=== PATIENT | male | born 1950 | race Caucasian/White ===

== ENCOUNTER 2022-09-23 17:18 | Inpatient (IN) | payer MEDICARE, OTHER, SELFPAY ==
[2022-09-23] MEDS ORDERED: niCARdipine 25 MG/10 ML SDV ONE ×2 (17:35→17:46)
[2022-09-23] MEDS ORDERED: Etomidate 20 MG/10 ML VIAL ONE (17:37)
[2022-09-23] MEDS ORDERED: Rocuronium Bromide 10 MG/ML (10ML VIAL) ONE (17:37)
[2022-09-23 17:43] LABS: #Basophils 0.1 thou/uL (0.0-0.2); #Lymphocytes 1.5 thou/uL (1.20-3.40); #Monocytes 0.5 thou/uL (0.11-0.59); #Neutrophils 8.5 thou/uL (1.40-6.50); %Basophils 0.5 % (0.0-1.0); %Eosinophils 0.4 % (0.0-10.0); %Lymphocytes 14.1 % (21.0-51.0); %Monocytes 4.6 % (0.0-10.0); %Neutrophils 80.5 % (42.0-75.0); Mean Corpuscular HGB CONC 33.9 g/dL (32.0-36.0); Mean Corpuscular Hemoglobin 31.8 pg (27.0-31.0); Mean Corpuscular Volume 93.9 fl (78.0-98.0); Mean Platelet Volume 7.6 fL (7.4-10.4); Platelet Count 231 10x3/uL (130-400); RBC Distribution Width 12.4 % (11.5-14.5); Red Blood Cell (RBC) Count 4.39 mill/uL (4.70-6.10); White Blood Cell (WBC) Count 10.5 10x3/uL (4.8-10.8)
[2022-09-23] MEDS ORDERED: Fentanyl CADD 100 ML IV SCH ×2 (17:45→18:45)
[2022-09-23] MEDS ORDERED: Midazolam HCl 2 mg/2 ml Vial ONE (17:46)
[2022-09-23 18:02] LABS: ALT (SGPT) 44 U/L (8-55); AST (SGOT) 44 U/L (5-34); Alkaline Phosphatase 78 U/L (40-110); Anion Gap 14 mmol/L (10-20); BUN (Urea Nitrogen) 21 mg/dL (8.4-25.7); Bilirubin, Total 0.4 mg/dL (0.2-1.2); Calc. Creatinine Clearance 0 mL/min (70-130); Calcium 9.5 mg/dL (7.8-10.44); Carbon Dioxide 27 mmol/L (23-31); Chloride 100 mmol/L (98-107); Estimated GFR 73; Globulin 3.2 g/dL (2.4-3.5); Potassium 4.3 mmol/L (3.5-5.1); Protein, Total 7.2 g/dL (5.8-8.1); Sodium 137 mmol/L (136-145)
[2022-09-23 18:05] LABS: Actual Bicarbonate (HCO3a) 23.2 mEq/L (22-28); Analyzer IN Cardio ER; Base Excess (BEa) 2.3 mEq/L (-2.0 to +3.0); Calcium, Ionized (arterial) 1.09 mmol/L (1.12-1.30); Hematocrit-ABG 39 % (42.0-52.0); Hemoglobin (Hb) 13.1 g/dL (14.0-18.0); O2 Tension (PaO2), arterial 576.2 mmHg (> 80.0); Potassium - ABG Lab 3.55 mmol/L (3.70-5.30); pH, Arterial 7.568 (7.35-7.45)
[2022-09-23 18:08] LABS: Puncture Site RRA
[2022-09-23 18:10] LABS: Bacteria/HPF None Seen HPF (None Seen); Bilirubin Negative (Negative); Blood, Urine 2+ (Negative); Clarity Clear (Clear); Glucose, Urine (Dipstick) Greater than 1000 mg/dL (Negative); Ketone, Urine Negative (Negative); Leukocyte Negative Leu/uL (Negative); Nitrite Negative (Negative); Protein, Urine (Dipstick) 70 mg/dL (Neg-Trace); RBC/HPF 21-50 HPF (0-3); Specific Gravity, Urine 1.027 (1.002-1.036); Squamous Epithelial None Seen HPF (0-3); Urobilinogen Normal mg/dL (Less than 2); WBC/HPF 0-3 HPF (0-3); pH, Urine 6.5 (5.0-9.0)
[2022-09-23 18:11] LABS: Transitional Epithelial 0-3 HPF (None Seen)
[2022-09-23] MEDS ORDERED: Milk Of Magnesia 30 ML UDCUP PO PRN (18:20)
[2022-09-23] MEDS ORDERED: NOREPINEPHRINE 8 MG/250 ML-D5W 250 ML IVPB PRN (18:20)
[2022-09-23] MEDS ORDERED: Acetaminophen 650 MG Suppository PR PRN (18:20)
[2022-09-23] MEDS ORDERED: Electrolyte Replacement Protocol 1 EACH IVPB PRN (18:20)
[2022-09-23] MEDS ORDERED: Mannitol 12.5 GM/50 ML ONE ×2 (18:21→18:32)
[2022-09-23] MEDS ORDERED: manNITOL 20% 0 ML ONE (18:21)
[2022-09-23 18:24] LABS: Glucose 440 mg/dL (80-115)
[2022-09-23] MEDS ORDERED: Mannitol 12.5 GM/50 ML IV PRN ×2 (18:27→18:40)
[2022-09-23] MEDS ORDERED: niCARdipine 25 MG in Sodium Chloride 0.9% 250 ML 250 ML IVPB PRN (18:27)
[2022-09-23] MEDS ORDERED: Dextrose 5%-Lactated Ringers 1,000 ML IV SCH (18:30)
[2022-09-23] MEDS ORDERED: Ventilator Sedation Protocol 1 EACH FS SCH (18:30)
[2022-09-23] MEDS ORDERED: Fentanyl BOLUS 250 ML IVPB PRN (18:45)
[2022-09-23] MEDS ORDERED: DISCONTINUE PREVIOUS NARCOTIC PAIN MEDICATIONS AND BENZODIAZEPINES FS SCH (18:45)
[2022-09-23] MEDS ORDERED: Propofol 1,000 MG/100 ML VIAL IV PRN (18:45)
[2022-09-23] MEDS ORDERED: Propofol BOLUS 1,000 MG/100 ML VIAL IV PRN (18:45)
[2022-09-23] MEDS ORDERED: Morphine 2 MG/ML VIAL SLOW IVP PRN (18:45)
[2022-09-23] MEDS ORDERED: Lorazepam 2 MG/ML VIAL SLOW IVP PRN (18:45)
[2022-09-23 19:07] LABS: INR-International Normal Ratio 0.8; PTT 25.8 sec (22.9-36.1); Prothrombin Time 11.9 sec (12.0-14.7)
[2022-09-23] MEDS ORDERED: Dextrose 5% in Water 1,000 ML IV PRN (19:54)
[2022-09-23] MEDS ORDERED: Dextrose 50% Abboject 50 ML SYRINGE SLOW IVP PRN (19:54)
[2022-09-23] MEDS ORDERED: HumaLOG 300 UNITS/3 ML VIAL SC PRN (19:54)
[2022-09-23 21:20] LABS: Hemoglobin A1c 13.2 % (4.0-6.0)
[2022-09-23] MEDS: Sodium Chloride 0.45% 1,000 ML IV SCH (22:00)
[2022-09-23] MEDS: Famotidine/PF 20 mg/2ml Vial SLOW IVP SCH (22:23)
[2022-09-23] MEDS ORDERED: NOREPINEPHRINE 8 MG/250 ML-D5W 250 ML ONE (22:35)
[2022-09-23] MEDS ORDERED: NOREPINEPHRINE 8 MG/250 ML-D5W 250 ML IVPB SCH (22:45)
[2022-09-23 22:58] LABS: Actual Bicarbonate (HCO3a) 25.1 mEq/L (22-28); Base Excess (BEa) 0.5 mEq/L (-2.0 to +3.0); CO2 Tension 40.4 mmHg (35.0-45.0); Calcium, Ionized (arterial) 1.12 mmol/L (1.12-1.30); Hematocrit-ABG 36 % (42.0-52.0); Hemoglobin (Hb) 12.4 g/dL (14.0-18.0); O2 Tension (PaO2), arterial 216.6 mmHg (> 80.0); Potassium - ABG Lab 3.84 mmol/L (3.70-5.30); pH, Arterial 7.411 (7.35-7.45)
[2022-09-23 23:01] LABS: Puncture Site RRA
[2022-09-24 00:09] LABS: Amphetamine Not Detected (NotDetected); Barbiturates Screen Not Detected (NotDetected); Benzodiazepine Screen Not Detected (NotDetected); Cocaine Metabolite Screen Not Detected (NotDetected); Methadone Not Detected (NotDetected); Methamphetamine Not Detected (NotDetected); Opiate Screen Not Detected (NotDetected); Oxycodone Screen Not Detected (NotDetected); Phencyclidine (PCP) Not Detected (NotDetected); THC/Cannabinoid Screen Not Detected (NotDetected); Tricyclic Screen Not Detected (NotDetected)
[2022-09-24] MEDS ORDERED: Sodium Chloride 0.45% 500 ML IV SCH (02:00)
[2022-09-24] MEDS: Sodium Chloride 0.45% 1,000 ML IV SCH (03:54)
[2022-09-24 04:39] LABS: #Lymphocytes 1.7 thou/uL (1.20-3.40); #Monocytes 1.6 thou/uL (0.11-0.59); #Neutrophils 14.6 thou/uL (1.40-6.50); %Eosinophils 0.3 % (0.0-10.0); %Lymphocytes 9.6 % (21.0-51.0); %Monocytes 8.7 % (0.0-10.0); %Neutrophils 81.5 % (42.0-75.0); Hemoglobin 12.8 g/dL (14.0-18.0); Mean Corpuscular HGB CONC 31.7 g/dL (32.0-36.0); Mean Corpuscular Volume 94.8 fl (78.0-98.0); Mean Platelet Volume 7.3 fL (7.4-10.4); Platelet Count 235 10x3/uL (130-400); RBC Distribution Width 12.7 % (11.5-14.5); Red Blood Cell (RBC) Count 4.25 mill/uL (4.70-6.10); White Blood Cell (WBC) Count 17.9 10x3/uL (4.8-10.8)
[2022-09-24 05:00] LABS: AST (SGOT) 32 U/L (5-34); Anion Gap 17 mmol/L (10-20); Bilirubin, Total 0.6 mg/dL (0.2-1.2); Calcium 8.7 mg/dL (7.8-10.44); Carbon Dioxide 19 mmol/L (23-31); Chloride 106 mmol/L (98-107); Cholesterol 213 mg/dl (< 200 Desired); Potassium 4.5 mmol/L (3.5-5.1); Protein, Total 6.4 g/dL (5.8-8.1); Sodium 137 mmol/L (136-145); Triglycerides 75 mg/dL (Less than 150)
[2022-09-24 05:10] LABS: Albumin 3.4 g/dL (3.4-4.8)
[2022-09-24 05:13] LABS: Glucose 255 mg/dL (80-115)
[2022-09-24 05:16] LABS: Alkaline Phosphatase 77 U/L (40-110); Calc. Creatinine Clearance 49 mL/min (70-130); Estimated GFR 94
[2022-09-24 05:17] LABS: BUN (Urea Nitrogen) 20 mg/dL (8.4-25.7)
[2022-09-24 05:18] LABS: Cardiac Risk 3.3 (Less than 4.5); HDL Cholesterol 64 mg/dL (>60 Neg Risk); LDL Cholesterol, Calculated 134 mg/dL
[2022-09-24 05:19] LABS: ALT (SGPT) 35 U/L (8-55)
[2022-09-24] MEDS: Pantoprazole 40 MG VIAL IVP SCH (08:45)
[2022-09-24] MEDS: Mannitol 12.5 GM/50 ML SLOW IVP SCH ×2 (08:46→22:00)
[2022-09-24] MEDS: Famotidine/PF 20 mg/2ml Vial SLOW IVP SCH ×2 (09:17→21:43)
[2022-09-24] MEDS ORDERED: Iopamidol-370 76% 500 ML MDV (1 ML CHARGE) ONE (10:42)
[2022-09-24] MEDS: HumaLOG 300 UNITS/3 ML VIAL SC PRN (13:20)
[2022-09-24] MEDS ORDERED: Sodium Chloride 0.9% 500 ML IV SCH (13:30)
[2022-09-24 16:21] VITALS: BMI 15.0
[2022-09-24 18:41] LABS: Sodium 139 mmol/L (136-145)
[2022-09-25 04:03] LABS: ALT (SGPT) 19 U/L (8-55); AST (SGOT) 16 U/L (5-34); Alkaline Phosphatase 64 U/L (40-110); Anion Gap 15 mmol/L (10-20); BUN (Urea Nitrogen) 19 mg/dL (8.4-25.7); Bilirubin, Total 0.6 mg/dL (0.2-1.2); Calc. Creatinine Clearance 50 mL/min (70-130); Calcium 8.3 mg/dL (7.8-10.44); Carbon Dioxide 21 mmol/L (23-31); Chloride 105 mmol/L (98-107); Estimated GFR 94; Globulin 2.6 g/dL (2.4-3.5); Glucose 148 mg/dL (80-115); Potassium 3.8 mmol/L (3.5-5.1); Protein, Total 5.6 g/dL (5.8-8.1); Sodium 137 mmol/L (136-145)
[2022-09-25 04:04] LABS: Mean Corpuscular HGB CONC 35.1 g/dL (32.0-36.0); Mean Corpuscular Hemoglobin 33.8 pg (27.0-31.0); Mean Corpuscular Volume 96.2 fl (78.0-98.0); Mean Platelet Volume 7.5 fL (7.4-10.4); Platelet Count 208 10x3/uL (130-400); RBC Distribution Width 12.9 % (11.5-14.5); Red Blood Cell (RBC) Count 3.85 mill/uL (4.70-6.10); White Blood Cell (WBC) Count 20.2 10x3/uL (4.8-10.8)
[2022-09-25 04:25] LABS: Band 41 % (5-11); Lymphocytes 4 % (21-51); MDiff Complete? YES; Metamyelocyte 1 % (0-0); Monocytes 3 % (0-10); Neutrophil 51 % (42-75); Reflex for Review?? YES
[2022-09-25] MEDS: Pantoprazole 40 MG VIAL IVP SCH (08:39)
[2022-09-25] MEDS: Famotidine/PF 20 mg/2ml Vial SLOW IVP SCH ×2 (08:40→20:50)
[2022-09-25] MEDS: Mannitol 12.5 GM/50 ML SLOW IVP SCH ×2 (08:56→20:50)
[2022-09-25] MEDS: HumaLOG 300 UNITS/3 ML VIAL SC PRN ×2 (12:56→21:15)
[2022-09-25 18:11] LABS: Sodium 138 mmol/L (136-145)
[2022-09-26 04:13] LABS: Hemoglobin 10.3 g/dL (14.0-18.0); Mean Corpuscular Volume 96.9 fl (78.0-98.0); Mean Platelet Volume 8.3 fL (7.4-10.4); Platelet Count 159 10x3/uL (130-400); Red Blood Cell (RBC) Count 3.22 mill/uL (4.70-6.10); White Blood Cell (WBC) Count 16.7 10x3/uL (4.8-10.8)
[2022-09-26 04:35] LABS: ALT (SGPT) 17 U/L (8-55); AST (SGOT) 13 U/L (5-34); Albumin 2.7 g/dL (3.4-4.8); Alkaline Phosphatase 73 U/L (40-110); Anion Gap 12 mmol/L (10-20); BUN (Urea Nitrogen) 32 mg/dL (8.4-25.7); Bilirubin, Total 0.5 mg/dL (0.2-1.2); Calc. Creatinine Clearance 51 mL/min (70-130); Calcium 8.4 mg/dL (7.8-10.44); Carbon Dioxide 22 mmol/L (23-31); Chloride 106 mmol/L (98-107); Estimated GFR 94; Globulin 2.6 g/dL (2.4-3.5); Glucose 185 mg/dL (80-115); Protein, Total 5.3 g/dL (5.8-8.1); Sodium 136 mmol/L (136-145)
[2022-09-26] MEDS: HumaLOG 300 UNITS/3 ML VIAL SC PRN ×3 (06:33→15:43)
[2022-09-26 06:38] LABS: Band 8 % (5-11); Lymphocytes 7 % (21-51); MDiff Complete? YES; Monocytes 2 % (0-10); Neutrophil 83 % (42-75); Platelet Morphology Comment Appears Adequate; RBC Morphology Within Normal Limits; Vacuoles SLIGHT
[2022-09-26] MEDS: Famotidine/PF 20 mg/2ml Vial SLOW IVP SCH (09:09)
[2022-09-26] MEDS: Mannitol 12.5 GM/50 ML SLOW IVP SCH ×2 (09:28→22:52)
[2022-09-26] MEDS: Ampicillin/Sulbactam 1.5 GM in Sodium Chloride 0.9% 100 ML IVPB SCH ×2 (11:42→17:08)
[2022-09-26] MEDS ORDERED: Lorazepam 2 MG/ML VIAL SLOW IVP PRN (17:40)
[2022-09-26] MEDS ORDERED: DC Sedation Protocol FS ONE (18:53)
[2022-09-26 19:06] LABS: Sodium 138 mmol/L (136-145)
[2022-09-27] MEDS: Morphine 4 MG/ML VIAL SLOW IVP PRN ×2 (02:39→15:54)
[2022-09-27 20:27] VITALS: BP 168/92; TEMP 100.5
[2022-09-28] MEDS: Morphine 4 MG/ML VIAL SLOW IVP PRN (03:49)
== END 2022-09-28 05:40 | disposition expired | DRG 64 ==
LOC: ERS 17:18 → CCU 18:55 → T4-A 09-26 20:02
PROVIDERS: ADMIT Student in an Organized Health Care Education/Training Program; ATTEND Internal Medicine
PROC: 4A133R1 Monitoring of Arterial Saturation, Peripheral, Percutaneous Approach (ICD-10-PCS; principal; 2022-09-23)
PROC: 5A1945Z Respiratory Ventilation, 24-96 Consecutive Hours (ICD-10-PCS; 2022-09-23)
PROC: 0BH17EZ Insertion of Endotracheal Airway into Trachea, Via Natural or Artificial Opening (ICD-10-PCS; 2022-09-23)
PROC: 3E033XZ Introduction of Vasopressor into Peripheral Vein, Percutaneous Approach (ICD-10-PCS; 2022-09-23)
DX: I61.8 Other nontraumatic intracerebral hemorrhage (principal); G93.41 Metabolic encephalopathy; G93.6 Cerebral edema; J69.0 Pneumonitis due to inhalation of food and vomit; G93.5 Compression of brain; J96.00 Acute respiratory failure, unspecified whether with hypoxia or hypercapnia; R47.01 Aphasia; G81.94 Hemiplegia, unspecified affecting left nondominant side; J98.11 Atelectasis; E87.3 Alkalosis; Z51.5 Encounter for palliative care; Z66 Do not resuscitate; E11.65 Type 2 diabetes mellitus with hyperglycemia; I10 Essential (primary) hypertension
CPT/HCPCS: 31500; 36415; 36416; 36600; 51702; 70450; 70496; 71045; 80053; 80061; 80306; 81003; 81015; 82565; 82805; 83036; 83930; 84295; 84484; 85025; 85060; 85610; 85730; 93005; 94002; 94003; 94760; 95712; 95819; 95957; 96365; 96366; 96374; 96375; C9113; J0295; J1815; J2150; J2250; J2270; J3010; J3490; J7799; Q2009; Q9967; S0028